=== PATIENT | male | born 1995 | race Two or more races ===

== ENCOUNTER 2023-04-23 13:52 | Inpatient (IN) | payer BC ==
[~2023-04-23] VITALS: Ht 170.2 cm; Wt 80.7 kg
--- NOTE | 2023-04-23 14:00 | NUR ---
BIBRA 89 FR HOME MORE ALTERED THAN NORMAL , BS:439 DIP GUIDER STOVES. NO HX OF DM HX AUTSIM PER GUARDIAN. PLACED IN BED, NOT RESPONDING TO VERBAL STIMULI, TACHYPNIEC RR- 34 SATURATING AT 98%RA.
--- NOTE | 2023-04-23 14:25 | NUR ---
blood drawn and sent to lab
[2023-04-23] MEDS ORDERED: IV NS 0.9% 1,000 ML BAG IV ONE ×3 (14:30→15:00)
--- NOTE | 2023-04-23 14:37 | NUR ---
AT BEDSIDE FOR EVAL
[2023-04-23 14:42] LABS: SITE, VBG Right Radial; VBG COHb 0.1 %; VBG MetHb 0.7 %; VBG OXYGEN SATURATION 85.7 %; VENT MODE, VBG room air
[2023-04-23] MEDS ORDERED: INSULIN REGULAR, HUMAN 100 UNITS in IV NS 0.9% 100 ML IV PRN ×2 (15:00)
--- NOTE | 2023-04-23 15:00 | NUR ---
PATIENT TAKEN TO CT VIA LAUREN
[2023-04-23 15:07] LABS: BASOPHILS # (AUTO) 0.1 K/uL (0.0-0.2); BASOPHILS % (AUTO) 0.2 % (0.0-2.0); EOSINOPHILS % (AUTO) 0.1 % (0.0-6.0); HEMATOCRIT 56 % (39-51); HEMOGLOBIN 16.9 g/dL (13.5-17.5); LYMPHOCYTES # (AUTO) 3.6 K/uL (0.8-4.8); LYMPHOCYTES % (AUTO) 12.4 % (20.0-44.0); MEAN CORPUSCULAR HGB CONC 30 g/dl (31.0-36.0); MEAN CORPUSCULAR VOLUME 92 fL (80-96); MONOCYTES # (AUTO) 2.3 K/uL (0.1-1.30); MONOCYTES % (AUTO) 7.9 % (2.0-12.0); NEUTROPHILS # (AUTO) 22.8 K/uL (1.8-8.9); NEUTROPHILS % (AUTO) 79.4 % (43.0-81.0); PLATELET COUNT (AUTO) 325 K/uL (150-450); RED BLOOD CELL COUNT(AUTO) 6.07 MIL/uL (4.5-6.0); WHITE BLOOD COUNT (AUTO) 28.7 K/uL (4.3-11.0)
--- NOTE | 2023-04-23 15:15 | NUR ---
URINE SAMPLE SENT TO LAB
[2023-04-23 15:24] LABS: CALCIUM, SERUM 9.5 mg/dL (8.5-10.1); CHLORIDE 102 mmol/L (98-107); CREATININE 1.9 mg/dL (0.6-1.3); POTASSIUM 3.9 mmol/L (3.5-5.1); SODIUM SERUM 143 mmol/L (136-145); UREA NITROGEN, BLOOD 14 mg/dL (7-18)
[2023-04-23 15:28] LABS: CARBON DIOXIDE 4 mmol/L (21-32); GLUCOSE 716 mg/dL (74-106)
--- NOTE | 2023-04-23 15:30 | NUR ---
MOVE SHEET SUBMITTED.
[2023-04-23 15:33] LABS: ALANINE AMINOTRANSFERASE 43 U/L (12-78); ALBUMIN 4.3 g/dL (3.4-5.0); ALKALINE PHOSPHATASE 177 U/L (46-116); ASPARTATE AMINOTRANSFERASE 38 U/L (15-37); BILIRUBIN,DIRECT 0.2 mg/dL (0.0-0.2); BILIRUBIN,TOTAL 0.6 mg/dL (0.2-1.0); LIPASE 180 U/L (73-393); TOTAL PROTEIN, SERUM 8.9 g/dL (6.4-8.2)
--- NOTE | 2023-04-23 15:53 | NUR ---
RECHECKED GLU- HI
[2023-04-23 16:49] LABS: BILIRUBIN,URINE 1+ (NEGATIVE); COLOR,URINE YELLOW (YELLOW); LEUKOCYTE ESTERASE ,URINE NEGATIVE (NEGATIVE); NITRITE, URINE NEGATIVE (NEGATIVE); PH,URINE 5.5 (5.0-8.0); PROTEIN,URINE 2+ mg/dl (NEGATIVE); UGLUCOSE 3+ mg/dL (NEGATIVE); UROBILINOGEN,URINE 0.2 EU/dL (0.2)
[2023-04-23 16:55] LABS: BACTERIA,URINE RARE /HPF (None Seen); FINE GRANULAR CASTS,URINE Few /LPF (None Seen); HYALINE CASTS, URINE Few /LPF (None Seen); RBC,URINE 0-2 /HPF (0-2); URINE AMORPHOUS URATE Few /HPF (None Seen); WBC,URINE 0-2 /HPF (0-3)
[2023-04-23 17:06] LABS: BAND % (MANUAL) 6 % (0.0-5.0); LYMPHOCYTES % (MANUAL) 12 % (16-48); MONOCYTES % (MANUAL) 7 % (0-11.0); NEUTROPHILS % (MANUAL) 75 (42-76)
[2023-04-23] MEDS ORDERED: IV LR 1000 ML 1,000 ML IV PRN (18:00)
[2023-04-23] MEDS ORDERED: ACETAMINOPHEN 650 MG/SUPP.RECT RC PRN (18:00)
[2023-04-23] MEDS ORDERED: Z GUARD REMEDY 4 OZ OINT TP PRN (18:00)
[2023-04-23] MEDS ORDERED: ACETAMINOPHEN 325 MG TABLET PO PRN (18:00)
[2023-04-23 18:36] LABS: CALCIUM, SERUM 8.3 mg/dL (8.5-10.1); CHLORIDE 113 mmol/L (98-107); CREATININE 1.6 mg/dL (0.6-1.3); POTASSIUM 3.5 mmol/L (3.5-5.1); SODIUM SERUM 149 mmol/L (136-145); UREA NITROGEN, BLOOD 16 mg/dL (7-18)
[2023-04-23 18:39] LABS: CARBON DIOXIDE 5 mmol/L (21-32); GLUCOSE 483 mg/dL (74-106)
[2023-04-23] MEDS ORDERED: POTASSIUM CHLORIDE 20 MEQ TAB.PRT.SR PO ONE (19:00)
--- NOTE | 2023-04-23 19:07 | NUR ---
GOT BED 254 > CHANGE OF SHIFT.
--- NOTE | 2023-04-23 20:06 | NUR ---
REPORT GIVEN TO BETHANY LOZANO ICU ROOM 254 FOR CHRIS
--- NOTE | 2023-04-23 20:13 | NUR ---
PT TRANSFERRED TO ICU 254 VIA ACLS PROTOCOL. VSS. ALL BELONGINGS WITH PT
[2023-04-23 20:30] VITALS: BP 101/52; O2SAT 97
--- NOTE | 2023-04-23 20:53 | NUR ---
RN NOTE INFORMED MAYO PERSONAL INVESTMENT ADVISER PATIENT IS LETHARGIC, UNABLE TO TAKE KDUR PO. ORDER RECEIVED TO CHANGE 20MEQ K IVP.
[2023-04-23 21:00] VITALS: BP 106/59; TEMP 100.8; O2SAT 97
[2023-04-23] MEDS ORDERED: SODIUM BICARBONATE SYR 50 MEQ/50 ML DISP.SYRIN IV ONE ×2 (21:00→23:30)
[2023-04-23] MEDS ORDERED: POTASSIUM CHLORIDE 10 MEQ/50 ML PREMIXED IVPB FOR PERIPHERAL LINE IV ONE (21:00)
[2023-04-23] MEDS: INSULIN REGULAR, HUMAN 100 UNIT in IV NS 0.9% 99 ML IV PRN ×2 (21:13)
[2023-04-23] MEDS: BLOOD SUGAR DIAGNOSTIC 1 EACH STRIP IN SCH ×3 (21:14→23:06)
[2023-04-23 22:00] VITALS: BP 135/75; O2SAT 96
[2023-04-23 22:17] LABS: CALCIUM, SERUM 9.2 mg/dL (8.5-10.1); CREATININE 1.8 mg/dL (0.6-1.3); MAGNESIUM 2.4 mg/dL (1.8-2.4); PHOSPHORUS 1.5 mg/dL (2.5-4.9); POTASSIUM 3.3 mmol/L (3.5-5.1)
[2023-04-23 22:21] LABS: ABG PCO2 18.9 mmHg (35.0-45.0); ABG PH 7.181 (7.350-7.450); ABG PO2 88.2 mmHg (75.0-100.0); SITE, ABG Left Radial
[2023-04-23 22:22] LABS: ABG BASE EXCESS -19.1 mmol/L; ABG OXYGEN SATURATION 97.6 % (92.0-98.5); AaDO2 38.9 mmHg; COHb 0.9 % (0.5-1.5); MetHb 0.6 % (0.0-1.5); O2Hb 96.1 % (94.0-97.0); VENT MODE, BG ROOM AIR
--- NOTE | 2023-04-23 22:27 | NUR ---
ISRRAEL DONE. RESULTS GIVEN TO JOHNNA LOZANO.
[2023-04-23] MEDS ORDERED: Sodium Chloride 77 MEQ in IV 10% DEXTROSE 1,000 ML IV PRN (22:30)
--- NOTE | 2023-04-23 22:40 | NUR ---
RN NOTE FAXED ORDER FOR D10 1/2NS TO RN PARAFFIN PLANT OPERATOR TO SUPPLY.
--- NOTE | 2023-04-23 22:46 | NUR ---
RN NOTE INFORMED CHAPINCITO MAYO PATIENT ABG RESULTS, PH 7.1 CO2 18.9 PO2 88.2 HCO3 6.9. CRITICAL LAB FOR CO2 7. GLUCOSE 326. NO NEW ORDERS.
[2023-04-23 23:00] VITALS: BP 120/72; O2SAT 96
[2023-04-23] MEDS ORDERED: [UNRECOGNIZED DRUG - OTHER] IV PRN (23:00)
[2023-04-23] MEDS ORDERED: DEXTROSE IV PRN (23:00)
--- NOTE | 2023-04-23 23:05 | NUR ---
BLAKE NOTE INFORMED CHAPINCITO MULTANI OF ABG RESULT. 1 AMP BICARB ORDERED.
--- NOTE | 2023-04-23 23:08 | NUR ---
RN NOTE RN SUP CALLED TO BRING D10 1/2 NS.
--- NOTE | 2023-04-23 23:11 | NUR ---
RN NOTE CALLED [facility] TO VERIFY 1 AMP BICARB
--- NOTE | 2023-04-23 23:20 | NUR ---
RN NOTE RN TEST KITCHEN HOME ECONOMIST STATES WE DONT CARRY D10 1/2 NS. CHAPINCITO MULTANI INFORMED.
[2023-04-24] VITALS (23 sets, daily range): BP systolic 124–159; BP diastolic 54–92; TEMP 98.4–99.7; O2SAT 93–99
[2023-04-24] MEDS: BLOOD SUGAR DIAGNOSTIC 1 EACH STRIP IN SCH ×24 (00:15→23:00)
[2023-04-24 01:10] LABS: CALCIUM, SERUM 9.1 mg/dL (8.5-10.1); CREATININE 1.6 mg/dL (0.6-1.3); MAGNESIUM 2.1 mg/dL (1.8-2.4)
[2023-04-24 01:16] LABS: PHOSPHORUS 0.6 mg/dL (2.5-4.9); POTASSIUM 2.7 mmol/L (3.5-5.1)
--- NOTE | 2023-04-24 01:30 | NUR ---
AUTOMOBILE SPRING REPAIRER PT HAS CRITICAL LAB. RESULTS: K-2.7, PHOS-O.6 CHAPINCITO MULTANI MIXING ENGINEER WAS NOTIFIED. GIVEN ONLY ORDER KCL 40 MEQ IV.
[2023-04-24] MEDS: POTASSIUM CL. PREMIX PERIPHER. 50 ML IV SCH ×4 (01:38→05:02)
--- NOTE | 2023-04-24 01:40 | NUR ---
RN NOTE INFORMED BY CROP NUTRITION SCIENTIST, ED OF CRITICAL LABS. CROP NUTRITION SCIENTIST REPORTED LABS TO NERISSA BECKHAM AND RECEIVED ORDERS FOR ONLY K REPLACEMENT. INFORMED RN BATH HOUSE ATTENDANT, [place] OF CRITICAL LABS K 2.7 AND PHOS 0.6. ONLY RECEIVED ORDER FOR K REPLACEMENT.
[2023-04-24] MEDS: ONDANSETRON HCL/PF 4 MG/2 ML VIAL IVP PRN (01:59)
[2023-04-24] MEDS ORDERED: POTASSIUM PHOSPHATE MM 15 MMOL in IV NS 0.9% 250 ML IV SCH ×2 (02:30→10:30)
--- NOTE | 2023-04-24 02:35 | NUR ---
RN NOTE INFORMED RN STOCK MANAGER KPHOS ORDERED. MEDICATION ORDER FAXED TO RN STOCK MANAGER OFFICE.
--- NOTE | 2023-04-24 02:55 | NUR ---
RN NOTE FAXED [facility] ORDER TO PHARMACY
[2023-04-24 03:55] LABS: BASOPHILS % (AUTO) 0.2 % (0.0-2.0); HEMATOCRIT 46 % (39-51); HEMOGLOBIN 14.9 g/dL (13.5-17.5); LYMPHOCYTES # (AUTO) 0.9 K/uL (0.8-4.8); LYMPHOCYTES % (AUTO) 6.3 % (20.0-44.0); MEAN CORPUSCULAR HGB CONC 33 g/dl (31.0-36.0); MEAN CORPUSCULAR VOLUME 86 fL (80-96); MONOCYTES # (AUTO) 1.1 K/uL (0.1-1.30); MONOCYTES % (AUTO) 7.8 % (2.0-12.0); NEUTROPHILS # (AUTO) 12.2 K/uL (1.8-8.9); NEUTROPHILS % (AUTO) 85.7 % (43.0-81.0); PLATELET COUNT (AUTO) 159 K/uL (150-450); RED BLOOD CELL COUNT(AUTO) 5.27 MIL/uL (4.5-6.0); WHITE BLOOD COUNT (AUTO) 14.2 K/uL (4.3-11.0)
[2023-04-24] MEDS: POTASSIUM PHOSPHATE MM 7.5 MMOL in IV NS 0.9% 100 ML IV SCH ×6 (04:08→20:38)
[2023-04-24 04:09] LABS: CALCIUM, SERUM 9.5 mg/dL (8.5-10.1); CREATININE 1.6 mg/dL (0.6-1.3); MAGNESIUM 2.1 mg/dL (1.8-2.4)
[2023-04-24 04:19] LABS: ABG BASE EXCESS -11.1 mmol/L; ABG OXYGEN SATURATION 95.6 % (92.0-98.5); ABG PCO2 35.6 mmHg (35.0-45.0); ABG PH 7.246 (7.350-7.450); ABG PO2 70.6 mmHg (75.0-100.0); AaDO2 36.5 mmHg; COHb 1.1 % (0.5-1.5); MetHb 0.4 % (0.0-1.5); O2Hb 94.2 % (94.0-97.0); SITE, ABG Right Radial; VENT MODE, BG ROOM AIR
[2023-04-24 04:38] LABS: PHOSPHORUS 0.6 mg/dL (2.5-4.9); POTASSIUM 2.8 mmol/L (3.5-5.1)
--- NOTE | 2023-04-24 05:00 | NUR ---
RN NOTE INFORMED MULTANI PATIENT CONTINUES TO HAVE TACHYPNEA AND TACHYCARDIA. RR 30S, HR 130S. NO FEVER, DENIES PAIN. NO NEW ORDERS.
[2023-04-24 05:40] LABS: CHOLESTEROL 231 mg/dL (<200); HDL CHOLESTEROL 37 mg/dL (40-60); LDL 139 mg/dL (0-99); TRIGLYCERIDES 237 mg/dL (30-150)
--- NOTE | 2023-04-24 07:00 | NUR ---
RN CLOSING NOTE RECEIVED PATIENT ON 6 UNITS INSULIN GTT. LETHARGIC AND DROWSY. OPENS EYES FOR A FEW SECONDS. FLACCID EXTREMITIES. SPO2 96% ON ROOM AIR. TACHYPNIC. SINUS TACHYCARDIA HR 130S ON THE MONITOR. RAMIREZ CATHETER PRESENT WITH TEA COLORED URINE. SKIN INTACT. NO EDEMA. IV IN LAC RUNNING INSULIN GTT. AND RAC SL. BLOOD SUGAR CHECKED Q1HR. FOLLOWED INSULIN PROTOCOL AND FORMULA. UNABLE TO HANG D10 1/ DRUG UNAVAILABLE. PRN ZOFRAN GIVEN X1 FOR EMESIS EPISODE. TMAX 100.8, PRN RECTAL TYLENOL AND COOLING MEASURES GIVEN. CURRENT BLOOD SUGAR 157. INSULIN GTT AT 3.9 UNITS. LR @100 IN LIJ. K AND PHOS REPLACEMENTS GIVEN. PENDING MIDLINE INSERTION. FAMILY AT BEDSIDE. PATIENT IS MORE ALERT TO NAME AND PLACE. FOLLOWS COMMANDS, FEELS FATIGUED AND HAS GENERALIZED WEAKNESS.
--- NOTE | 2023-04-24 07:15 | NUR ---
sericulture teacher note Patient is resting in bed without active complaint. GCS [id number], bilateral pupils 3mm PEARLA. patient monitor showed ST HR 110/min. SBP>90mmHg without vasopressor use. SpO2 >95% RA, RR ~30/min. Sanchez is in-situ, collecting clear and yellowish urine. Insulin drip is running through the left AC, site is dry and intact, no erythema noted. Left IJ IV site is dry and intact, with IV fluid running. Right AC is dry and intact, with KPO4 running.
[2023-04-24 09:24] LABS: CALCIUM, SERUM 9.3 mg/dL (8.5-10.1); CREATININE 1.3 mg/dL (0.6-1.3); MAGNESIUM 2.1 mg/dL (1.8-2.4); POTASSIUM 2.9 mmol/L (3.5-5.1)
[2023-04-24 09:37] LABS: PHOSPHORUS 0.7 mg/dL (2.5-4.9)
[2023-04-24] MEDS: Potassium Chloride 20 MEQ in IV D5/0.45 NACL 1,000 ML IV SCH ×2 (09:49→15:04)
--- NOTE | 2023-04-24 09:55 | NUR ---
SAP BASIS NOTE CUSTOMER ADVISOR Flo Self saw patient at bedside. Clinical condition updated. He ordered to switch to the formula of blood sugar x 2 /100 for insulin titration. Would follow accordingly.
[2023-04-24 12:33] LABS: CALCIUM, SERUM 9.2 mg/dL (8.5-10.1); CREATININE 1.4 mg/dL (0.6-1.3); MAGNESIUM 1.9 mg/dL (1.8-2.4)
[2023-04-24 12:43] LABS: PHOSPHORUS 0.5 mg/dL (2.5-4.9); POTASSIUM 2.6 mmol/L (3.5-5.1)
[2023-04-24] MEDS ORDERED: K PHOS NEUTRAL 250 MG TABLET PO ONE ×2 (14:30→20:00)
--- NOTE | 2023-04-24 15:00 | NUR ---
ARCHITECTURE INSTRUCTOR NOTE SENIOR STOCK PLAN ADMINISTRATOR Flo Self called and updated the latest treatment. 1. Reduce D5 1/2 NS + 20mEq KCl rate from 175 to 90mL/hr. 2. Replaced potassium and phosphorus orally (supplemented by existing IV therapy). 3. Withold insulin drip when K is </= 2.8mmol/L
[2023-04-24] MEDS: POTASSIUM CHLORIDE 20 MEQ TAB.PRT.SR PO SCH ×2 (15:03→16:20)
[2023-04-24 15:17] LABS: CALCIUM, SERUM 9.2 mg/dL (8.5-10.1); CREATININE 1.3 mg/dL (0.6-1.3); MAGNESIUM 1.9 mg/dL (1.8-2.4)
[2023-04-24 15:36] LABS: PHOSPHORUS 0.7 mg/dL (2.5-4.9); POTASSIUM 2.8 mmol/L (3.5-5.1)
[2023-04-24 18:33] LABS: CALCIUM, SERUM 8.9 mg/dL (8.5-10.1); CREATININE 1.3 mg/dL (0.6-1.3); MAGNESIUM 1.8 mg/dL (1.8-2.4); PHOSPHORUS 1.3 mg/dL (2.5-4.9); POTASSIUM 3.2 mmol/L (3.5-5.1)
--- NOTE | 2023-04-24 19:00 | NUR ---
Received in bed with family at bed side, room air able to make needs known, alert x4, DKA protocol followed Midline and right upper arm and left and right A/C IV lines clean and intact respiration rate 18 bpm, lungs clear,able to move all extremities with no discomfort on insulin drip, 2000 blood sugar is 292 mg/dl kept the previous dose of 5.8unit on insulin drip family asked lots of questions since this is their first time of discovering that their son has DM. All questions answered. Replacement of potassium continue, able to swallow potassium pills treatment noted on spreadsheet
--- NOTE | 2023-04-24 19:06 | NUR ---
CRM MARKETING ANALYST NOTE Clarified with PROGRAM EVALUATION CONSULTANT Flo Self about the insulin drip as BS at 1900 is 291, K 3.2 and anion gap increasing to 20. He said that to restart insulin drip when K is >2.8.
[2023-04-24] MEDS ORDERED: POTASSIUM CHLORIDE 20 MEQ POWDER PACKET PO ONE (19:30)
--- NOTE | 2023-04-24 22:30 | NUR ---
lab result 2100 shows potassium is 23.4, held potassium iv and iv fluid with potassium and call lab to draw a stat BMP result pending
[2023-04-24 22:40] LABS: POTASSIUM 23.4 mmol/L (3.5-5.1)
[2023-04-24 22:41] LABS: CALCIUM, SERUM 5.2 mg/dL (8.5-10.1); PHOSPHORUS 54.2 mg/dL (2.5-4.9)
[2023-04-24 23:27] LABS: CALCIUM, SERUM 9.4 mg/dL (8.5-10.1); CREATININE 1.3 mg/dL (0.6-1.3); POTASSIUM 3.3 mmol/L (3.5-5.1)
[2023-04-24 23:34] LABS: ALBUMIN 2.8 g/dL (3.4-5.0); BILIRUBIN,TOTAL 0.6 mg/dL (0.2-1.0); MAGNESIUM 1.8 mg/dL (1.8-2.4); PHOSPHORUS 1.1 mg/dL (2.5-4.9); TOTAL PROTEIN, SERUM 6.1 g/dL (6.4-8.2)
[2023-04-25] VITALS (19 sets, daily range): BP systolic 111–164; BP diastolic 47–99; TEMP 97.3–99.2; O2SAT 96–99
--- NOTE | 2023-04-25 | NUR ---
lab result post redraw BMP, potassium is 3.3 and blood sugar is 205mg/dl restarted protocol on potassium and decrease insulin drip to 4.1 units. FAMILY AT BED SIDE ALL ORDERS NOTED.
[2023-04-25] MEDS: INSULIN REGULAR, HUMAN 100 UNIT in IV NS 0.9% 99 ML IV PRN ×2 (00:13)
[2023-04-25] MEDS: BLOOD SUGAR DIAGNOSTIC 1 EACH STRIP IN SCH ×16 (00:13→21:38)
--- NOTE | 2023-04-25 01:35 | NUR ---
patient complaint of nausea , Zofran 4 mg given iv continue DKA protocol blood sugar is 191mg/dl insulin drip is decreased to 3.8 unit/hr
[2023-04-25] MEDS: ONDANSETRON HCL/PF 4 MG/2 ML VIAL IVP PRN (01:39)
[2023-04-25] MEDS: Potassium Chloride 20 MEQ in IV D5/0.45 NACL 1,000 ML IV SCH (01:39)
[2023-04-25 02:45] LABS: CALCIUM, SERUM 9.1 mg/dL (8.5-10.1); CREATININE 1.2 mg/dL (0.6-1.3); MAGNESIUM 1.7 mg/dL (1.8-2.4); PHOSPHORUS 1.6 mg/dL (2.5-4.9); POTASSIUM 2.9 mmol/L (3.5-5.1)
[2023-04-25] MEDS ORDERED: POTASSIUM CHLORIDE 20 MEQ TAB.PRT.SR PO ONE (04:00)
--- NOTE | 2023-04-25 04:08 | NUR ---
lab result potassium 2.9, order given to give potassium 40meq po now, given family is at bed side and to give 40 meq potassium iv @ 0800
--- NOTE | 2023-04-25 04:11 | NUR ---
patient stated he feel nausea and he want no more PO medication
[2023-04-25 05:24] LABS: BASOPHILS % (AUTO) 0.2 % (0.0-2.0); EOSINOPHILS % (AUTO) 0.2 % (0.0-6.0); HEMATOCRIT 36 % (39-51); HEMOGLOBIN 12.4 g/dL (13.5-17.5); LYMPHOCYTES # (AUTO) 1.4 K/uL (0.8-4.8); LYMPHOCYTES % (AUTO) 13.1 % (20.0-44.0); MEAN CORPUSCULAR HGB CONC 34 g/dl (31.0-36.0); MEAN CORPUSCULAR VOLUME 83 fL (80-96); MONOCYTES # (AUTO) 1.1 K/uL (0.1-1.30); MONOCYTES % (AUTO) 10.1 % (2.0-12.0); NEUTROPHILS % (AUTO) 76.4 % (43.0-81.0); PLATELET COUNT (AUTO) 149 K/uL (150-450); RED BLOOD CELL COUNT(AUTO) 4.35 MIL/uL (4.5-6.0); WHITE BLOOD COUNT (AUTO) 10.4 K/uL (4.3-11.0)
[2023-04-25 05:34] LABS: CALCIUM, SERUM 9.1 mg/dL (8.5-10.1); CREATININE 1.1 mg/dL (0.6-1.3); MAGNESIUM 1.8 mg/dL (1.8-2.4); PHOSPHORUS 1.7 mg/dL (2.5-4.9); POTASSIUM 2.9 mmol/L (3.5-5.1)
--- NOTE | 2023-04-25 06:46 | NUR ---
called to inform Murali regarding patient potassium 2.9 new order given to add 40meq potassium iv at noon after 20 meq po @0430 and 40meq iv @ 0800
[2023-04-25] MEDS: POTASSIUM CL. PREMIX PERIPHER. 50 ML IV SCH ×4 (07:56→13:09)
[2023-04-25] MEDS: Magnesium 1GM/D5W 100ML PREMIX 100 ML IV SCH ×3 (07:56→10:35)
[2023-04-25 09:54] LABS: CALCIUM, SERUM 9.1 mg/dL (8.5-10.1); POTASSIUM 3.1 mmol/L (3.5-5.1)
[2023-04-25 10:13] LABS: MAGNESIUM 7.4 mg/dL (1.8-2.4)
[2023-04-25] MEDS ORDERED: DEXTROSE 50%-WATER 50 ML DISP.SYRIN IV PRN (11:00)
[2023-04-25] MEDS ORDERED: POTASSIUM CL. PREMIX PERIPHER. 50 ML IV SCH (12:00)
[2023-04-25] MEDS: POTASSIUM CHLORIDE 20 MEQ TAB.PRT.SR PO SCH ×2 (12:13→13:10)
[2023-04-25] MEDS: IV 1/2NS 1000 ML 1,000 ML IV PRN ×2 (12:13→21:06)
[2023-04-25] MEDS: INSULIN GLARGINE, 100 UNIT/ML CARTRIDGE SQ SCH ×2 (12:14→23:00)
--- NOTE | 2023-04-25 12:15 | NUR ---
lantus given as ordered
[2023-04-25] MEDS: POTASSIUM PHOSPHATE MM 7.5 MMOL in IV NS 0.9% 100 ML IV SCH ×2 (12:16→16:04)
[2023-04-25 12:25] LABS: CALCIUM, SERUM 9.3 mg/dL (8.5-10.1); CREATININE 0.9 mg/dL (0.6-1.3); MAGNESIUM 2.1 mg/dL (1.8-2.4); PHOSPHORUS 2.1 mg/dL (2.5-4.9); POTASSIUM 3.3 mmol/L (3.5-5.1)
--- NOTE | 2023-04-25 13:15 | NUR ---
INSULIN DRIP DISCONTINUED PER PRIMARY PROVIDER RAÚL MAYO
--- NOTE | 2023-04-25 17:41 | NUR ---
HAND OFF REPORT GIVEN TO DELTA LOZANO FOR CONTINUATION OF CARE.
--- NOTE | 2023-04-25 17:45 | NUR ---
PATIENT TRANSFERED FROM ICU ROOM 254 WITH BED TO ROOM 114/1. ALERT X4. UNLABORED BREATHING AT ROOM AIR SATING AT 95%, BP 133/82 P 78, T 98.6 R 18 0/10. MIDLINE ON RIGHT UPPER ARM MIDLINE PATENT RUNNING SODIUM PHOSPATE ORDERED. PARENT AT BEDSIDE. HOB ELEVATED, BILATERAL HALF SIDE RAILS UPX2. BED IN LOW POSITION, LOCKED, EXIT ALARM ON. CALL LIGHT IN REACH. DENIES PAIN. NO S/S OF HYPO OR HYPERGLYCEMIA.
[2023-04-25] MEDS: INSULIN REGULAR, HUMAN 100 UNIT/ML 3 ML VIAL SQ PRN ×2 (18:25→21:44)
--- NOTE | 2023-04-25 20:15 | NUR ---
HOME HEALTH RN NOTE RECEIVED PT A/O X4 EATING DINNER. UNLABORED BREATHING AT ROOM AIR SATING AT 95%. IV ON RIGHT UPPER ARM MIDLINE PATENT RUNNING SODIUM PHOSPATE ORDERED. PARENT AT BEDSIDE. HOB ELEVATED, SIDE RAILS UPX2. BED IN LOWEST POSITION, LOCKED, BED ALARM ON. CALL LIGHT IN REACH. DENIES PAIN. NO S/S OF HYPO OR HYPERGLYCEMIA. WILL CONTINUE TO MONITOR.
[2023-04-25] MEDS ORDERED: POLYETHYLENE GLYCOL 3350 17 GM POWD.PACK PO PRN (21:00)
[2023-04-25] MEDS ORDERED: LACTULOSE 10 G/15 ML UDC (PYXIS) PO ONE (21:00)
[2023-04-25] MEDS ORDERED: INSULIN GLARGINE, 100 UNIT/ML CARTRIDGE SQ ONE (22:56)
[2023-04-26 04:00] VITALS: BP 125/70; TEMP 98.2; O2SAT 99
--- NOTE | 2023-04-26 06:45 | NUR ---
FINNISH RUBBER CLOSING NOTE PT SLEEPING IN BED A/O X4. UNLABORED BREATHING AT ROOM AIR SATING AT 99%. IV ON RIGHT UPPER ARM MIDLINE INTACT AND PATENT RUNNING 1/2 N/S @ 100 ML/HR INFUSING WELL. PARENT AT BEDSIDE. ALL DUE MEDS ARE GIVEN ORDERED. HOB ELEVATED, SIDE RAILS UPX2. BED IN LOWEST POSITION, LOCKED, BED ALARM ON. CALL LIGHT WITHIN REACH. DENIES PAIN. NO S/S OF HYPO OR HYPERGLYCEMIA DURING THE SHIFT. WILL ENDORSE CARE TO AM SHIFT RN.
[2023-04-26] MEDS: IV 1/2NS 1000 ML 1,000 ML IV PRN (07:01)
[2023-04-26 07:20] LABS: BASOPHILS % (AUTO) 0.3 % (0.0-2.0); EOSINOPHILS % (AUTO) 0.6 % (0.0-6.0); HEMATOCRIT 33 % (39-51); HEMOGLOBIN 11.4 g/dL (13.5-17.5); LYMPHOCYTES # (AUTO) 2.4 K/uL (0.8-4.8); LYMPHOCYTES % (AUTO) 29.5 % (20.0-44.0); MEAN CORPUSCULAR HGB CONC 34 g/dl (31.0-36.0); MEAN CORPUSCULAR VOLUME 83 fL (80-96); MONOCYTES # (AUTO) 0.5 K/uL (0.1-1.30); MONOCYTES % (AUTO) 6.7 % (2.0-12.0); NEUTROPHILS % (AUTO) 62.9 % (43.0-81.0); PLATELET COUNT (AUTO) 118 K/uL (150-450); RED BLOOD CELL COUNT(AUTO) 3.99 MIL/uL (4.5-6.0)
[2023-04-26] MEDS: BLOOD SUGAR DIAGNOSTIC 1 EACH STRIP IN SCH ×4 (07:30→21:02)
[2023-04-26 08:03] LABS: CALCIUM, SERUM 8.5 mg/dL (8.5-10.1); CREATININE 0.7 mg/dL (0.6-1.3); MAGNESIUM 1.8 mg/dL (1.8-2.4); PHOSPHORUS 3.6 mg/dL (2.5-4.9); POTASSIUM 2.9 mmol/L (3.5-5.1)
[2023-04-26] MEDS: INSULIN REGULAR, HUMAN 100 UNIT/ML 3 ML VIAL SQ PRN ×4 (08:55→21:06)
[2023-04-26] MEDS: POTASSIUM CHLORIDE 20 MEQ TAB.PRT.SR PO SCH ×3 (09:41→12:58)
--- NOTE | 2023-04-26 15:40 | NUR ---
TELEPHONE ORDER TO REMOVE THE RAMIREZ CATHETER FROM DR. RAÚL MAYO
[2023-04-26 16:00] VITALS: BP 119/81; TEMP 98.2; O2SAT 98
[2023-04-26] MEDS ORDERED: TAMSULOSIN 0.4 MG CAP.SR.24H PO ONE (17:00)
--- NOTE | 2023-04-26 17:00 | NUR ---
Dr. Self ordered 0.4 mg Flomax once po so patient can urinate after owusu removed. patient will stay in the hospital until 9 pm after taking his last dose of Insulin Lantus hi parents can take him home. Dr. Self gave the parents a written prescription and their pharmacy told them that mediation will be ready tomorrow. so they had to leave late to get all the Insulin doses for tonight.
[2023-04-26 20:00] VITALS: BP 128/73; TEMP 98.3; O2SAT 99
--- NOTE | 2023-04-26 20:30 | NUR ---
MS RN NOTE USED BLADDER SCAN TO SCAN PT'S BLADDER PER MD ORDER. URINE IS LESS THAN 50 ML. ASKED THE PT WHETHER HE HAD URINATION DIFFICULTIES OR DISCOMFORT WHEN HE URINATE; PT STATED THERE WERE NO PROBLEMS. HE URINATED 3 TIMES AFTER THE RAMIREZ CATHETER HAD BEEN REMOVED.
[2023-04-26] MEDS: INSULIN GLARGINE, 100 UNIT/ML CARTRIDGE SQ SCH (21:06)
--- NOTE | 2023-04-26 21:37 | NUR ---
MS RN NOTE CHECKED PT'S BLOOD SUGAR. HIS BS IS 325. ADMINISTERED 8 UNIT OF REGULAR INSULIN PER SLIDING SCALE AND SCHEDULED LANTUS 11 UNITS. INSTRUCTED THE PT AND HIS PARENTS TO WATCH FOR S/S OF HYPOGLYCEMIA; AND DRINK SOME ORANGE JUICE IF THIS HAPPENS. PT'S IV ACCESS HAS BEEN REMOVED BY THE DAY SHIFT NURSE EARLIER. REMOVED PT'S ID BAND, TRANSPORTED PT ON A WHEELCHAIR TO HIS FAMILY CAR. PT'S CONDITION IS STABLE ON RA; AO X 4.
--- NOTE | 2023-04-27 11:24 | NUR ---
PHARMACIST CALLED AND VERIFIED INSULIN SLIDING SCALE,RELAYED THE SLIDING SCALE DOCUMENTED BY RAÚL MAYO ON DISCHARGE SUMMARY.ALSO GIVEN EPIC NUMBER TO PHARMACIST.
[2023-04-27 12:07] LABS: *C PEPTIDE 0.9 ng/mL (1.1-4.4); *INSULIN 3.5 uIU/mL (2.6-24.9)
== END 2023-04-26 21:17 | disposition home health service (06) | DRG 637 ==
LOC: ER 14:09 → ICU 19:56 → MEDSG1 04-25 17:24
PROVIDERS: ADMIT Nurse Practitioner Family; ATTEND Nurse Practitioner Family
PROC: 05H533Z Insertion of Infusion Device into Right Subclavian Vein, Percutaneous Approach (ICD-10-PCS; principal; 2023-04-24)
PROC: B546ZZA Ultrasonography of Right Subclavian Vein, Guidance (ICD-10-PCS; 2023-04-24)
DX: E11.10 Type 2 diabetes mellitus with ketoacidosis without coma (principal); G93.41 Metabolic encephalopathy; N17.0 Acute kidney failure with tubular necrosis; E87.0 Hyperosmolality and hypernatremia; F84.0 Autistic disorder; E87.20 Acidosis, unspecified; E83.39 Other disorders of phosphorus metabolism; E87.6 Hypokalemia; F17.210 Nicotine dependence, cigarettes, uncomplicated; R53.1 Weakness
CPT/HCPCS: 36415; 36600; 70450-TC; 71045-TC; 80048-TC; 80053-TC; 80061-TC; 80076-TC; 81001; 82010-TC; 82803-TC; 82962-TC; 83690-TC; 83735-TC; 84100-TC; 84443-TC; 84484-TC; 85025-TC; 87086-TC; A4223; G0378; J1815; J2405; J3475; J3480; J3490; J7030; J7050; J7120